=== PATIENT | female | born 1970 | race American Indian/Alaskan Native ===

== ENCOUNTER 2016-11-11 16:55 | Emergency (ER) | payer OTHER ==
[2016-11-11 20:42] VITALS: BP 186/79
[2016-11-11 20:45] LABS: Basophils % (Auto) 0.7 % (0.0-1.8); Eosinophils % (Auto) 2.2 % (0.0-4.3); Hemoglobin 9.4 gm/dl (10.1-14.3); Mean Corpuscular HGB Conc 31 % (30-34); Mean Corpuscular Hemoglobin 21 pg (28-32); Mean Corpuscular Volume 68 fl (79-97); Platelet Count 338 K/mm3 (140-440); Red Blood Count 4.43 M/mm3 (3.65-5.03); Red Cell Distribution Width 16.9 % (13.2-15.2); White Blood Count 5.4 K/mm3 (4.5-11.0)
[2016-11-11 20:57] LABS: Anion Gap 17 mmol/L; BUN/Creatinine Ratio 11.11; Blood Urea Nitrogen 10 mg/dL (7-17); Calcium 8.6 mg/dL (8.4-10.2); Carbon Dioxide 22 mmol/L (22-30); Chloride 100.3 mmol/L (98-107); Glucose 104 mg/dL (65-100); Potassium 3.2 mmol/L (3.6-5.0); Sodium 136 mmol/L (137-145)
[2016-11-11] MEDS ORDERED: K-DUR PO ONE (21:28)
[2016-11-11] MEDS ORDERED: MOTRIN PO ONE (21:29)
--- NOTE | 2016-11-11 22:24 | Emergency Department Report ---
Entered by TYREL MONROE, acting as scribe for LEAH ARAGON PA. ED Extremity Problem HPI - General Chief complaint: Extremity Problem,Nontraumatic Stated complaint: RT HAND /RT ARM SWOLLEN Time Seen by Provider: 11/11/16 20:20 Source: patient Mode of arrival: Ambulatory Limitations: No Limitations - History of Present Illness Initial comments: 46 y/o female with PMHx of HTN, presents to the ED c/o right upper extremity swelling and pain beginning this morning. She denies trauma, injury, or known insect bite to the area. Associated symptoms of erythema in the affected area and chills, but she denies headache, nausea, vomiting, fever, chest pain, SOB, weakness, and numbness. She had a similar episode 1 month ago, at which time her salivary gland became swollen, for which she was prescribed percocet and clindamycin. She is unsure which medication she had an adverse reaction to at that time. Noted the patient is compliant with her prescribed HCTZ for her HTN as prescribed by her PCP (Dr. Dick). MD Complaint: extremity swelling (right upper extremity) -: days(s) (1 day) Location: right, upper extremity History of Same: Yes (patient notes that 1 month ago her salivary gland was swollen) -: No fever, No associated dyspnea, No associated chest pain Radiation: none Severity scale (0 -10): 8 Consistency: constant Improves with: nothing Worsens with: exertion, palpation Associated Symptoms: other (chills, but denies nausea, vomiting, headache). denies: chest pain, shortness of breath, fever - Related Data Previous Rx's Medication Instructions Recorded Last Taken Type Cephalexin [Keflex] 500 mg PO QID #40 capsule 11/11/16 Unknown Rx Allergies Allergy/AdvReac Type Severity Reaction Status Date / Time acetaminophen [From Percocet] Allergy Rash Verified 11/11/16 20:21 clindamycin Allergy Rash Verified 11/11/16 20:21 lisinopril Allergy Unknown Unverified 03/31/14 07:24 oxycodone HCl [From Percocet] Allergy Rash Verified 11/11/16 20:21 raspberry Allergy Rash Verified 11/11/16 17:52 ED Past Medical Hx - Past Medical History Previous Medical History?: Yes Hx Hypertension: Yes Hx COPD: Yes (2003) Additional medical history: thyroid problem - Surgical History Past Surgical History?: Yes Additional Surgical History: lumbar discetomy - Medications Home Medications: Home Medications Medication Instructions Recorded Confirmed Last Taken Type Cephalexin [Keflex] 500 mg PO QID #40 capsule 11/11/16 Unknown Rx ED Physical Exam - General Limitations: No Limitations - Other Other exam information: GENERAL: Patient is alert and oriented x 3. No apparent distress, normal gait, atraumatic. HEAD: Head is normocephalic and atraumatic. EYES: Extraocular movements are intact. Pupils are equal, round, and reactive to light and accommodation. EARS: Symmetrical, atraumatic, non tender, ear canal clear with moderate cerumen , tympanic membrane non inflamed. Gross auditory nml bilaterally. NOSE: Nose symmetrical, nontender. Nares appeared normal. MOUTH:Mouth is well hydrated and without lesions. Mucous membranes are moist. Uvula midline. Tongue not elevated. Posterior pharynx clear, no exudate or lesions. Tonsils are not erythematous or swollen. Patent airway. NECK: Supple. Non edematous, no carotid bruits. No lymphadenopathy or thyromegaly. LUNGS: Symmetrical with respiration. No wheezing, rales or crackles, CTAB. HEART: Regular rate and rhythm with normal S1/S2 present. No murmurs, rubs, or gallops. ABDOMEN: Soft, nondistended. Nontender to palpation on all quadrants. No organomegaly was noted. Positive bowel sounds. No CVA tenderness. EXTREMITIES/MUSCULOSKELETAL: No cyanosis, clubbing, rash, or lesions. Full ROM bilaterally. UE/LE Pulses 2+ bilaterally. LE and UE 5+ strength bilaterally. Noted the right hand is erythematous, tender to palpation, and edematous, with streaking occurring up the right forearm on both the ulnar and volar faces of the right forearm. SKIN: Warm and dry. No lesions or ulceration present. Noted the right hand is erythematous and edematous, with streaking up the volar and ulnar faces of the right forearm. NEUROLOGIC: No focal deficit. ED Course Vital Signs 11/11/16 11/11/16 17:46 20:42 Temperature 98.1 F Pulse Rate 109 H Respiratory 18 Rate Blood Pressure 161/101 Blood Pressure 161/101 186/79 [Left] O2 Sat by Pulse 100 Oximetry ED Medical Decision Making - Lab Data Result diagrams: 11/11/16 20:27 11/11/16 20:27 - Medical Decision Making Patient was evaluated by the provider in fast track. 46 y/o female presents complaining of right upper extremity swelling and tenderness beginning today. Patient states she is compliant with her HTN medication (HCTZ). The patient's labs show Patient is in no acute distress at this time. She will be discharged home with Keflex 500mg QID for 10 days and is encouraged to follow up with her PCP (Dr. Dick). She is encouraged to return to the emergency room for any worsening symptoms, fever, or blackening of the extremities. ED Disposition Clinical Impression: Cellulitis of forearm, right, Cellulitis of hand, right, Hypokalemia Disposition: DISCHARGED TO HOME OR SELFCARE Is pt being admited?: No Does the pt Need Aspirin: No Condition: Stable Instructions: Cellulitis (ED) Additional Instructions: Please take the Keflex which is an antibiotic for your cellulitis. If very important for you to follow-up with her primary care provider this week. If he gets worse or no improvement follow-up with emergency room. Prescriptions: Cephalexin [Keflex] 500 mg PO QID #40 capsule Referrals: PRIMARY CARE,MD [Primary Care Provider] - 3-5 Days Forms: Work/School Release Form(ED) This documentation as recorded by the [facility] GRACE,accurately reflects the service I personally performed and the decisions made by me,LEAH ARAGON PA.
== END 2016-11-11 22:09 | disposition home or self-care (01) ==
LOC: ED 16:55
DX: L03.113 Cellulitis of right upper limb (principal); E87.6 Hypokalemia; I10 Essential (primary) hypertension; J44.9 Chronic obstructive pulmonary disease, unspecified; Z88.8 Allergy status to other drugs, medicaments and biological substances; Z88.1 Allergy status to other antibiotic agents; Z91.018 Allergy to other foods
CPT/HCPCS: 36415; 80048; 85025; 99283

== ENCOUNTER 2017-12-29 06:04 | Day surgery (SDC) | payer OTHER ==
[2017-12-24 12:02] LABS: Basophils % (Auto) 1.3 % (0.0-1.8); Eosinophils # (Auto) 0.2 K/mm3 (0.0-0.4); Eosinophils % (Auto) 5.3 % (0.0-4.3); Hematocrit 29.1 % (30.3-42.9); Hemoglobin 9.3 gm/dl (10.1-14.3); Lymphocytes # (Auto) 1.5 K/mm3 (1.2-5.4); Lymphocytes % (Auto) 40.8 % (13.4-35.0); Mean Corpuscular HGB Conc 32 % (30-34); Mean Corpuscular Volume 76 fl (79-97); Monocytes # (Auto) 0.4 K/mm3 (0.0-0.8); Monocytes % (Auto) 10.6 % (0.0-7.3); Platelet Count 370 K/mm3 (140-440); Red Blood Count 3.81 M/mm3 (3.65-5.03); Red Cell Distribution Width 17.2 % (13.2-15.2)
[2017-12-24 12:04] LABS: Mean Corpuscular Hemoglobin 25 pg (28-32)
[2017-12-24 12:13] LABS: INR 2.08 (0.87-1.13)
[2017-12-24 12:14] LABS: Partial Thromboplastin Time 45.6 Sec. (24.2-36.6)
[2017-12-24 12:36] LABS: BUN/Creatinine Ratio 13; Blood Urea Nitrogen 10 mg/dL (7-17); Calcium 8.9 mg/dL (8.4-10.2); Hemolysis Index 0
--- NOTE | 2017-12-28 19:02 | History and Physical Report ---
History of Present Illness Date of examination: 12/24/17 History of present illness: This is a 47 year-old female who desires fertility. She has an endometrial mass and excessive and frequent menstruation causing anemia. She presents now for cervical dilation, excision of endometrial mass and uterine curettage. Vital Signs: Patient Profile: 47 Years Old Female LMP: 12/14/2017 Height: 66 inches (167.64 cm) Weight: 330 pounds BMI: 53.26 BSA: 2.48 BP sittin / 78 (left arm) Pt. in pain? no Vitals Entered By: Tristan Leblanc (December 24, 2017 9:47 AM) Menstrual History: LMP (date): 12/14/2017 Date of Last Pap Smear: 07/02/2017 Past History : 0 [employer] History Operations: [employer] Surgery:h'scopy D&C Back surgery 11/2008 Abnormal PAP: positive Infection History HIV Risk Eval: no Hx of STD: HSV Active Medications (reviewed today): OXYCODONE-ACETAMINOPHEN 5-325 MG ORAL TABLET (OXYCODONE-ACETAMINOPHEN) 1-2po q6h VITAMIN D3 04159 UNIT ORAL CAPSULE (CHOLECALCIFEROL) SINGULAIR 10 MG ORAL TABLET (MONTELUKAST SODIUM) 1 po qd ZYRTEC ALLERGY TABLET (CETIRIZINE HCL TABS) ALBUTEROL SULFATE (2.5 MG/3ML) 0.083% INHALATION NEBULIZATION SOLUTION ( ALBUTEROL SULFATE) VALACYCLOVIR HCL 500 MG ORAL TABLET (VALACYCLOVIR HCL) 1 po bid x3 days as needed SYNTHROID TABLET (LEVOTHYROXINE SODIUM TABS) LOVENOX 300 MG/3ML INJECTION SOLUTION (ENOXAPARIN SODIUM) Inject 0.4ml (40mg) subcutaneously bid TRIAMTERENE-HCTZ TABLET (TRIAMTERENE-HCTZ TABS) Current Allergies (reviewed today): LISINOPRIL (LISINOPRIL TABS) (Critical) Past Medical History: Protein S deficiency Asthma Hypertension Hypothyroidism Anemia Vitamin D deficiency Stroke/CVA Past Surgical History: Reviewed history from 01/31/2009 and no changes required: [employer] Surgery:h'scopy D&C Back surgery 11/2008 Family History Summary: Reviewed history Last on 03/24/2014 and no changes required:12/28/2017 Uncle - Has Family History of Lung Cancer - maternal - Entered On: 07/19/2017 Father (biol.) - Has Family History of Lung Cancer - Entered On: 07/19/2017 Uncle - Has Family History of Brain Cancer - Entered On: 07/19/2017 MGM - Has Family History Breast Cancer - Entered On: 07/19/2017 Other family member - Has No Family History of Biliary Tract Cancer - Entered On : 07/19/2017 Other family member - Has No Family History of Colon Cancer - Entered On: 2016 Other family member - Has No Family History of DVT/PE on OCP - Entered On: 2016 Other family member - Has No Family History of Kidney/Urinary Tract Cancer - Entered On: 07/19/2017 Other family member - Has No Family History of Ovarvian Cancer - Entered On: 07/19/2017 Other family member - Has No Family History of Pancreatic Cancer - Entered On: 07/19/2017 Other family member - Has No Family History of Stomach Cancer - Entered On: 07/19 Other family member - Has No Family History of Small Bowel Cancer - Entered On: 07/19/2017 Other family member - Has No Family History of Uterine Cancer - Entered On: 07/19 General Comments - FH: Family History Breast Cancer:MGM No Family History of Colon Cancer No Family History of Ovarian Cancer Social History: Reviewed history from 06/19/2017 and no changes required: Patient is Smoking History: Patient has never smoked. Risk Factors: PAP Smear History: Date of Last PAP Smear: 07/02/2017 Previous Tobacco Use: Signed On - 06/19/2017 Smoked Tobacco Use: Never smoker Passive smoke exposure: no Drug use: no HIV high-risk behavior: no Caffeine use: 2 drinks per day Previous Alcohol Use: Signed On - 06/19/2017 Alcohol use: yes Drinks per day: social Exercise: no Seatbelt use: 100 % Mammogram History: Date of Last Mammogram: 03/31/2014 PAP Smear History: Date of Last PAP Smear: 07/02/2017 Review of Systems General Denies fever, chills, sweats, anorexia, fatigue, weakness, malaise, weight loss and sleep disorder. Complains of menorrhagia and abnormal vaginal bleeding. Denies vaginal discharge, incontinence, dysuria, hematuria, urinary frequency, amenorrhea, pelvic pain, genital sores, decreased libido, painful periods, painful sex, urinary urgency, hot flashes, vaginal dryness, vaginal itching and vaginal odor. CV Denies chest pains, palpitations, syncope, dyspnea on exertion, orthopnea, PND and peripheral edema. Resp Denies cough, dyspnea at rest, excessive sputum, hemoptysis, wheezing and pleurisy. GI Denies nausea, vomiting, diarrhea, constipation, change in bowel habits, abdominal pain, melena, hematochezia, jaundice, gas/bloating, indigestion/ heartburn, dysphagia and odynophagia. Endo Denies cold intolerance, heat intolerance, polydipsia, polyphagia, polyuria and unusual weight change. Breast Denies left breast lump, right breast lump, nipple discharge, bloody discharge from nipple, breast pain, abnormal mammogram and breast enlargement. MS Denies back pain, joint pain, joint swelling, muscle cramps, muscle weakness, stiffness, arthritis, sciatica, restless legs, leg pain at night and leg pain with exertion. Derm Denies rash, itching, dryness and suspicious lesions. Neuro Denies paralysis, paresthesias, headache, seizures, tremors, vertigo, transient blindness, frequent falls, frequent headaches and difficulty walking. Psych Denies depression, anxiety, irritability and mood swings. Eyes Denies blurring, diplopia, irritation, discharge, vision loss, eye pain and photophobia. ENT Denies earache, ear discharge, tinnitus, decreased hearing, nasal congestion, nosebleeds, sore throat and hoarseness. Allergy Denies urticaria, allergic rash, hay fever and recurrent infections. Heme Denies abnormal bruising, bleeding and enlarged lymph nodes. Physical Exam Appearance: well developed, well nourished, no acute distress Other Exams Lungs: no rales, rhonchi, or wheezes Heart: S1, S2, no murmur, rub, or gallop Abdomen: soft, non-tender, no masses, Appearance: obese Genitourinary Exam Vulva: normal, no lesions or discharge Urethral meatus: normal size and location, no lesions or discharge Urethra: no discharge Bladder: no cystocele Vagina: normal appearance, no discharge, lesions. No evidence of cystocele or rectocele. Cervix: normal appearance, no lesions, no discharge Uterus: unable to palpate Adnexa: unable to palpate due to obesity Impression & Recommendations: Problem # 1: Excessive and frequent menstruation with irregular cycle (ICD- 626.6) (OXY02-K96.1) Consent reviewed and signed . Possible laparoscopy or laparotomy explained to patient. The risks and alternatives for this surgery were reviewed with the patient. She was informed of possible bleeding, infection, injury to bowel, bladder, ureters or other adjacent organs. The patient was instructed/informed the following: The normal length of hospital stay for this procedure. Nothing to eat or drink after midnight the evening prior to surgery. Clear liquids the afternoon prior to the procedure. Pre-op instruction sheets given. Wound care instructions given. Infection precautions reviewed, patient to call for any signs or symptoms of infection. The usual discomforts associated with this procedure were detailed. Proper use of pain medicines was reviewed. Patient was given ample opportunity to have all her questions answered before signing informed consent. Patient voiced understanding and agrees with plan of care Counseling and coordination of care was >50% of the face to face time. The total face to face time for this visit was ~40 minutes. Problem # 2: Fibroids of uterus, Submucosal (ICD-218.0) (OUG45-A98.0) She was informed she may require a hysterectomy if bleeding is unable to be controlled during the procedure. She declined having the intramural and subserosal fibroids removed at this time. Problem # 3: Hereditary protein S deficiency (ICD-289.81) (LJK17-U86.59) She states she will d/c Coumadin today and start Lovenox qd tonight. Medications Added to Medication List This Visit: 1) Oxycodone-acetaminophen 5-325 Mg Oral Tablet (Oxycodone-acetaminophen) .... 1-2po q6h 2) Vitamin D3 99043 Unit Oral Capsule (Cholecalciferol) 3) Singulair 10 Mg Oral Tablet (Montelukast sodium) .... 1 po qd 4) Zyrtec Allergy Tablet (Cetirizine hcl tabs) 5) Lovenox 300 Mg/3ml Injection Solution (Enoxaparin sodium) .... Inject 0.4ml (40mg) subcutaneously bid 6) Triamterene-hctz Tablet (Triamterene-hctz tabs) Prescriptions: OXYCODONE-ACETAMINOPHEN 5-325 MG ORAL TABLET (OXYCODONE-ACETAMINOPHEN) 1-2po q6h #15 x 0 Entered and Authorized by: Marbella Mcelroy MD Method used: Print then Give to Patient RxID: [id number] Medications and Allergies Allergies Allergy/AdvReac Type Severity Reaction Status Date / Time acetaminophen [From Percocet] Allergy Rash Verified 11/11/16 20:21 clindamycin Allergy Rash Verified 11/11/16 20:21 lisinopril Allergy Unknown Verified 11/11/16 21:43 oxycodone HCl [From Percocet] Allergy Rash Verified 11/11/16 20:21 raspberry Allergy Rash Verified 11/11/16 17:52 Home Medications Medication Instructions Recorded Confirmed Last Taken Type ALBUTEROL Inhaler [Proair] 2 puff IH QID PRN 12/25/17 12/25/17 Unknown History Cetirizine HCl [Zyrtec] 10 mg PO DAILY 12/25/17 12/25/17 Unknown History Enoxaparin [Lovenox] 100 mg SQ Q12HR 12/25/17 12/25/17 Unknown History Levothyroxine Sodium 175 mcg PO DAILY 12/25/17 12/25/17 Unknown History Triamter/Hctz 37.5-25 mg 1 tab PO DAILY 12/25/17 12/25/17 Unknown History [Maxzide-25] Warfarin [Coumadin] 5 mg PO QDAY 12/25/17 12/25/17 12/23/17 20:00 History Active Meds: Active Medications Cefazolin Sodium (Ancef/Sterile Water 2 Gm/20 Ml) 2 gm in 20 mls @ 80 mls/hr IV PREOP NR; Protocol Stop: 12/29/17 23:00 Exam Vital Signs Temp Pulse Resp BP 99.1 F 74 18 128/88 12/24/17 11:00 12/24/17 11:00 12/24/17 11:00 12/24/17 11:00 Results - Labs 12/24/17 11:15 12/24/17 11:15 Assessment and Plan - Patient Problems (1) Excessive and frequent menstruation with irregular cycle Status: Acute (2) Endometrial mass Status: Acute (3) Uterine fibroid Status: Chronic Qualifiers: Uterine leiomyoma location: intramural, submucous, and subserous Qualified Code(s): D25.1 - Intramural leiomyoma of uterus; D25.0 - Submucous leiomyoma of uterus; D25.2 - Subserosal leiomyoma of uterus (4) Anemia Status: Chronic Qualifiers: Iron deficiency anemia type: chronic blood loss (5) Protein S deficiency Status: Chronic (6) Hypothyroid Status: Acute (7) Hypertension Status: Chronic (8) Asthma Status: Chronic (9) Vitamin D deficiency Status: Chronic (10) BMI 45.0-49.9, adult Status: Chronic
[~2017-12-29 06:04] MED LIST: ANCEF/STERILE WATER 2 GM/20 ML 2 GM/20 ML SYRINGE IV NR
[2017-12-29] MEDS ORDERED: NACL BACTERIOSTATIC INFILTRATI ONE (06:45)
[2017-12-29] MEDS ORDERED: VERSED IV NR (07:00)
[2017-12-29] MEDS ORDERED: NACL 0.9% 1000 ML 1,000 ML IV SCH (07:00)
[2017-12-29] MEDS ORDERED: PEPCID IV NR (07:00)
[2017-12-29] MEDS ORDERED: DILAUDID IV PRN (07:12)
[2017-12-29] MEDS ORDERED: ZOFRAN IV PRN (07:12)
[2017-12-29] MEDS ORDERED: TORADOL IV PRN (07:12)
[2017-12-29] MEDS ORDERED: SILVER NITRATE TP ONE (07:22)
[2017-12-29 07:27] LABS: INR 1.1 (0.87-1.13)
[2017-12-29] MEDS ORDERED: DIPRIVAN 10 MG/ML IV ONE (07:27)
[2017-12-29] MEDS ORDERED: XYLOCAINE MPF 2% ONE (07:27)
[2017-12-29 07:28] LABS: Partial Thromboplastin Time 33.2 Sec. (24.2-36.6)
[2017-12-29] MEDS ORDERED: SUBLIMAZE ONE (07:28)
[2017-12-29] MEDS ORDERED: NACL 0.9% IR ONE (07:55)
--- NOTE | 2017-12-29 08:58 | Anesthesia Consultation ---
Anesthesia Consult and Med Hx - Airway Anesthetic Teeth Evaluation: Good ROM Head & Neck: Adequate Mental/Hyoid Distance: Adequate Mallampati Class: Class II Intubation Access Assessment: Probably Good - Pulmonary Exam CTA: Yes - Cardiac Exam Cardiac Exam: RRR - Pre-Operative Health Status ASA Pre-Surgery Classification: ASA3 (no problems with GA i past) Proposed Anesthetic Plan: General - Pulmonary Hx Asthma: Yes ("Been a minute" since last treated) COPD: Yes (2004) - Cardiovascular System Hx Hypertension: Yes (since 2003) Hx Heart Murmur: Yes - Central Nervous System Hx Psychiatric Problems: No - Hematic Hx Anemia: Yes (protein s deficiency) - Other Systems Hx Alcohol Use: Yes (occas) Hx Cancer: No
--- NOTE | 2017-12-29 08:58 | Post Anesthesia Evaluation ---
- Post Anesthesia Evaluation Patient Participated: Yes Airway Patent: Yes Stable Respiratory Function: Yes Nausea/Vomiting: No Temp > 96.8F: Yes Pain Manageable: Yes Adequeate Hydration: Yes Anesthesia Complications: No Block Receding Appropriately: Not Applicable Patient on Ventilator: No
--- NOTE | 2017-12-29 09:01 | Short Stay Summary ---
Short Stay Documentation Date of service: 12/29/17 Narrative H&P: see H&P - Allergies and Medications Current Medications: Allergies acetaminophen [From Percocet] Allergy (Verified 11/11/16 20:21) Rash clindamycin Allergy (Verified 11/11/16 20:21) Rash lisinopril Allergy (Verified 11/11/16 21:43) Unknown oxycodone HCl [From Percocet] Allergy (Verified 11/11/16 20:21) Rash raspberry Allergy (Verified 11/11/16 17:52) Rash Home Medications Medication Instructions Recorded Confirmed Last Taken Type ALBUTEROL Inhaler [Proair] 2 puff IH QID PRN 12/25/17 12/25/17 Unknown History Cetirizine HCl [Zyrtec] 10 mg PO DAILY 12/25/17 12/25/17 Unknown History Enoxaparin [Lovenox] 100 mg SQ Q12HR 12/25/17 12/25/17 Unknown History Levothyroxine Sodium 175 mcg PO DAILY 12/25/17 12/25/17 Unknown History Triamter/Hctz 37.5-25 mg 1 tab PO DAILY 12/25/17 12/25/17 Unknown History [Maxzide-25] Warfarin [Coumadin] 5 mg PO QDAY 12/25/17 12/25/17 12/23/17 20:00 History Active Medications Hydromorphone HCl (Dilaudid) 0.25 mg IV Q10MIN PRN PRN Reason: Pain, Moderate (4-6) Stop: 12/29/17 15:00 Cefazolin Sodium (Ancef/Sterile Water 2 Gm/20 Ml) 2 gm in 20 mls @ 80 mls/hr IV PREOP NR; Protocol Stop: 12/29/17 23:00 Sodium Chloride (Nacl 0.9% 1000 Ml) 1,000 mls @ 100 mls/hr IV DIRECT GABRIELA Last Admin: 12/29/17 07:13 Dose: 100 mls/hr Ketorolac Tromethamine (Toradol) 30 mg IV ONCE PRN PRN Reason: Pain, Moderate (4-6) Stop: 12/29/17 13:00 Midazolam HCl (Versed) 2 mg IV PREOP NR Stop: 12/29/17 23:59 Last Admin: 12/29/17 07:16 Dose: 2 mg Ondansetron HCl (Zofran) 4 mg IV ONCE PRN PRN Reason: Nausea And Vomiting Stop: 12/29/17 15:00 - Brief post op/procedure progress note Date of procedure: 12/29/17 Pre-op diagnosis: Excessive and frequent irregular menstruation, endometrial mass, fibroids Post-op diagnosis: same Procedure: Hysterscopy, D&C. Myosure resection of endometrial lesion Anesthesia: GETA Surgeon: OLIVIA FAN Estimated blood loss: minimal Specimen disposition: to lab Condition: stable - Hospital course Hospital course: unremarkable - Disposition Condition at discharge: Good Disposition: DC- TO HOME OR SELFCARE - Discharge Diagnoses (1) Excessive and frequent menstruation with irregular cycle Status: Acute (2) Endometrial mass Status: Acute (3) Uterine fibroid Status: Chronic Qualifiers: Uterine leiomyoma location: intramural, submucous, and subserous Qualified Code(s): D25.1 - Intramural leiomyoma of uterus; D25.0 - Submucous leiomyoma of uterus; D25.2 - Subserosal leiomyoma of uterus (4) Anemia Status: Chronic Qualifiers: Iron deficiency anemia type: chronic blood loss (5) Protein S deficiency Status: Chronic (6) Hypothyroid Status: Acute (7) Hypertension Status: Chronic (8) Asthma Status: Chronic (9) Vitamin D deficiency Status: Chronic (10) BMI 45.0-49.9, adult Status: Chronic Short Stay Discharge Plan Activity: other (nosex) Weight Bearing Status: Full Weight Bearing Diet: low fat, low cholesterol, low salt Follow up with: BRITT FARIA JR, MD [Primary Care Provider] - 7 Days OLIVIA FAN MD [Staff Physician] - (As scheduled)
--- NOTE | 2017-12-29 09:56 | Operative Report ---
Operative Report Operative Report: Date: 12/29/2017 Preoperative diagnosis: 1. Excessive and frequent irregular menstruation 2. Uterine fibroids 3. Endometrial mass Postoperative diagnosis: 1. Excessive and frequent irregular menstruation 2. Uterine fibroids 3. Endometrial mass Procedure: 1. Cervical dilation 2. Uterine curettage 3. Resection of anterior endometrial mass with sampling of endometrial tissue using Myosure device Surgeon: Marbella Mcelroy MD [employer] Laborer: [] Anesthesiologist: Muriel Balderas M.D. Anesthesia: Endotracheal anesthesia EBL: Minimal Findings: Uterus sounded to 10 cm. Small mass noted on the anterior surface of the uterus possible fibroid. Grossly normal tubal ostia. Distention medium: Normal saline Fluid deficit: 200 mL Procedure: After risks, benefits, complications, consequences and alternatives for this procedure were explained, and patient voiced her understanding and her desire to proceed, she is taken to the OR and placed in the supine position. General anesthesia was induced. She was placed in the dorsolithotomy position. Exam under anesthesia was unremarkable. She was then prepped and draped in usual sterile fashion. Timeout was performed. A Horton catheter was introduced into the bladder a operative speculum was introduced was introduced into the vagina. The anterior lip of the cervix was grasped with single-tooth tenaculum and the uterus was sounded to 10 cm. The cervix was progressively dilated to allow the operative hysteroscope. Anterior mass was noted otherwise the cavity appeared to be grossly normal. Uterine curettage was then performed. Using the Myosure device hysteroscopic resection was performed. Further sampling of the endometrium using the Myosure device was performed. The device was removed. The hysteroscope was reintroduced. No evidence of perforation was noted. Hemostasis noted. The procedure was ended. The speculum and the tenaculum were removed. Hemostasis was noted. The Horton catheter was removed. No bleeding from the tenaculum site was noted. Clear yellow urine was draining into the Horton catheter at the end of the procedure. Patient tolerated procedure well and taken to recovery room in stable condition
[2017-12-29 11:32] VITALS: BP 153/86
== END 2017-12-29 10:35 | disposition home or self-care (01) ==
LOC: OR 06:04
PROVIDERS: ATTEND Obstetrics & Gynecology
DX: D25.9 Leiomyoma of uterus, unspecified (principal); I10 Essential (primary) hypertension; E03.9 Hypothyroidism, unspecified; J44.9 Chronic obstructive pulmonary disease, unspecified; Z79.01 Long term (current) use of anticoagulants; Z86.73 Personal history of transient ischemic attack (TIA), and cerebral infarction without residual deficits; Z88.8 Allergy status to other drugs, medicaments and biological substances; Z88.1 Allergy status to other antibiotic agents; Z88.6 Allergy status to analgesic agent
CPT/HCPCS: 36415; 58558; 80048; 81025; 85025; 85610; 85730; 86850; 86900; 86901; 88305; A4217; C1782; J0690; J1170; J2250; J2405; J2704; J3010; J7030

== ENCOUNTER 2018-09-12 09:13 | Emergency (ER) | payer OTHER ==
[2018-09-12 09:21] VITALS: BP 126/80
--- NOTE | 2018-09-12 09:54 | Emergency Department Report ---
Vomiting/Diarrhea - HPI Chief Complaint: Abdominal Pain Stated Complaint: UPSET STOMACH Duration: 2 Days Severity: moderate Nausea/Vomiting Severity: Mild Diarrhea Severity: Moderate Pain Location: LLQ Pain Severity: Moderate Symptoms: Yes Watery Diarrhea, Yes Able to Tolerate Fluids, No Bloody diarrhea, No Fever, No Recent Unusual Foods, No Recent Untreated Water, No Recent use of Antibiotics, No Family w/ Similar Symptoms, No Contacts w/ Similar Symptoms, No Rash, No Hematuria, No Recent URI Symptoms Other History: This is a 48-year-old -[place] female who presents with nausea, vomiting, diarrhea, and left lower quadrant abdominal pain for 2 days. Patient reports pain started out in epigastric area and radiated to the lower abdomen. She is currently taken ibuprofen. She reports one episode of vomiting and diarrhea every 2 hours that is liquid. He reports pain is worse with movement and feels like something twisting inside of stomach. She denies chest pain, shortness of breath, fever, or radiating pain. ED Review of Systems ROS: Stated complaint: UPSET STOMACH Other details as noted in HPI Constitutional: denies: chills, fever Respiratory: denies: cough, shortness of breath, wheezing Cardiovascular: denies: chest pain, palpitations Gastrointestinal: abdominal pain, nausea, vomiting, diarrhea. denies: constipation, hematemesis, melena, hematochezia Genitourinary: denies: urgency, dysuria, discharge Neurological: denies: headache, weakness, paresthesias Psychiatric: denies: anxiety, depression ED Past Medical Hx - Past Medical History Hx Hypertension: Yes (since 2003) Hx Arthritis: Yes ("everywhere") Hx Asthma: Yes ("Been a minute" since last treated) Hx COPD: Yes (2003) Additional medical history: thyroid problem - Surgical History Past Surgical History?: Yes Additional Surgical History: lumbar discetomy - Social History Smoking Status: Never Smoker Substance Use Type: None - Medications Home Medications: Home Medications Medication Instructions Recorded Confirmed Last Taken Type ALBUTEROL Inhaler (OR & NICU) 2 puff IH QID PRN 12/25/17 12/29/17 2 Months Ago History [Proair] ~10/29/17 Cetirizine HCl [Zyrtec] 10 mg PO DAILY 12/25/17 12/25/17 12/28/17 History Enoxaparin [Lovenox] 100 mg SQ Q12HR 12/25/17 12/25/17 12/28/17 History Levothyroxine Sodium 175 mcg PO DAILY 12/25/17 12/25/17 12/28/17 History Triamter/Hctz 37.5-25 mg 1 tab PO DAILY 12/25/17 12/25/17 12/28/17 History [Maxzide-25] Warfarin [Coumadin] 5 mg PO QDAY 12/25/17 12/25/17 12/23/17 20:00 History Ondansetron [Zofran Odt] 4 mg PO Q8HR PRN #15 tab.rapdis 09/12/18 Unknown Rx Vomiting Diarrhea Exam - Exam General: Vital signs noted. No distress. Alert and acting appropriately. HEENT: Yes Moist Mucous Membranes, No Pharyngeal Erythema, No Pharyngeal Exudates, No Rhinorrhea, No Conjuctival Injection, No Frontal Tenderness, No Maxillary Tenderness Neck: No Adenopathy, No Rigidity Lungs: Yes Clear Lung Sounds, Yes Good Air Exchange, No Wheezes, No Stridor, No Cough, No Nasal Flaring, No Retractions, No Use of Accessory Muscles Heart exam: Regular: Yes, Murmur: No, Tachycardia: No Abdomen: Tenderness: Yes (LUQ), Peritoneal Signs: No, Distention: No, Hyperactive Bowel sounds: No Skin exam: Rash: No, Edema: No, Normal turgor: Yes Neurologic: Alert and oriented, no deficits. Musculoskeletal: Unremarkable. ED Course Vital Signs 09/12/18 09:16 Temperature 99.8 F H Pulse Rate 84 Respiratory 18 Rate Blood Pressure 126/80 O2 Sat by Pulse 100 Oximetry ED Medical Decision Making - Lab Data Result diagrams: 09/12/18 09:56 09/12/18 09:56 Lab Results 09/12/18 09/12/18 09/12/18 Range/Units 09:54 09:56 09:56 WBC 5.8 (4.5-11.0) K/mm3 RBC 4.19 (3.65-5.03) M/mm3 Hgb 11.3 (10.1-14.3) gm/dl Hct 35.0 (30.3-42.9) % MCV 83 (79-97) fl MCH 27 L (28-32) pg MCHC 32 (30-34) % RDW 22.0 H (13.2-15.2) % Plt Count 281 (140-440) K/mm3 Add Manual Diff Complete Total Counted 100 Seg Neuts % (Manual) 79.0 H (40.0-70.0) % Band Neutrophils % 7.0 % Lymphocytes % (Manual) 8.0 L (13.4-35.0) % Reactive Lymphs % (Man) 0 % Monocytes % (Manual) 6.0 (0.0-7.3) % Eosinophils % (Manual) 0 (0.0-4.3) % Basophils % (Manual) 0 (0.0-1.8) % Metamyelocytes % 0 % Myelocytes % 0 % Promyelocytes % 0 % Blast Cells % 0 % Nucleated RBC % Not Reportable Seg Neutrophils # Man 4.6 (1.8-7.7) K/mm3 Band Neutrophils # 0.4 K/mm3 Lymphocytes # (Manual) 0.5 L (1.2-5.4) K/mm3 Abs React Lymphs (Man) 0.0 K/mm3 Monocytes # (Manual) 0.3 (0.0-0.8) K/mm3 Eosinophils # (Manual) 0.0 (0.0-0.4) K/mm3 Basophils # (Manual) 0.0 (0.0-0.1) K/mm3 Metamyelocytes # 0.0 K/mm3 Myelocytes # 0.0 K/mm3 Promyelocytes # 0.0 K/mm3 Blast Cells # 0.0 K/mm3 WBC Morphology Not Reportable Hypersegmented Neuts Not Reportable Hyposegmented Neuts Not Reportable Hypogranular Neuts Not Reportable Smudge Cells Not Reportable Toxic Granulation Not Reportable Toxic Vacuolation Not Reportable Dohle Bodies Not Reportable Pelger-Huet Anomaly Not Reportable Evelin Rods Not Reportable Platelet Estimate Consistent w auto Clumped Platelets Not Reportable Plt Clumps, EDTA Not Reportable Large Platelets Not Reportable Giant Platelets Not Reportable Platelet Satelliting Not Reportable Plt Morphology Comment Not Reportable RBC Morphology Not Reportable Dimorphic RBCs Not Reportable Polychromasia Not Reportable Hypochromasia Few Poikilocytosis Not Reportable Anisocytosis Not Reportable Microcytosis Not Reportable Macrocytosis Not Reportable Spherocytes Not Reportable Pappenheimer Bodies Not Reportable Sickle Cells Not Reportable Target Cells Not Reportable Tear Drop Cells Not Reportable Ovalocytes Not Reportable Stomatocytes Few Helmet Cells Not Reportable Virgen-Escanaba Bodies Not Reportable [place] Rings Not Reportable Bart Cells Not Reportable Bite Cells Not Reportable Crenated Cell Not Reportable Elliptocytes Not Reportable Acanthocytes (Spur) Not Reportable Rouleaux Not Reportable Hemoglobin C Crystals Not Reportable Schistocytes Not Reportable Malaria parasites Not Reportable Clarence Bodies Not Reportable Hem Pathologist Commnt No Sodium 133 L (137-145) mmol/L Potassium 3.4 L (3.6-5.0) mmol/L Chloride 97.1 L (98-107) mmol/L Carbon Dioxide 22 (22-30) mmol/L Anion Gap 17 mmol/L BUN 10 (7-17) mg/dL Creatinine 1.2 (0.7-1.2) mg/dL Estimated GFR 59 ml/min BUN/Creatinine Ratio 8 % Glucose 103 H (65-100) mg/dL Calcium 8.8 (8.4-10.2) mg/dL Total Bilirubin 0.60 (0.1-1.2) mg/dL AST 11 (5-40) units/L ALT 9 (7-56) units/L Alkaline Phosphatase 114 (35-129) units/L Total Protein 8.8 H (6.3-8.2) g/dL Albumin 3.6 L (3.9-5) g/dL Albumin/Globulin Ratio 0.7 % Lipase 41 (13-60) units/L HCG, Qual Negative (Negative) - Radiology Data Radiology results: report reviewed CT of abdomen and pelvic Impression: 1. Hepatic steatosis and hepatomegaly. 2. Multiple uterine masses most likely represents a uterine fibroids. Recommend further evaluation with pelvic ultrasound. 3. Cholelithiasis with possible porcelain gallbladder. 4. Mild Splenomegaly. - Medical Decision Making This is a 48 y.o. female that presents with nausea, vomiting, diarrhea, and abdominal pain for 2 days. Patient is stable and was examined by me. Vitals stable. Obtained labs and CT of abdomen and pelvis. The site obtained. Given normal saline and Toradol. Hypokalemia, given Klor-Con 40 mg by mouth once. CT of abdomen and pelvis. 1. Hepatic steatosis and hepatomegaly. 2. Multiple uterine masses most likely represents a uterine fibroids. Recommend further evaluation with pelvic ultrasound. 3. Cholelithiasis with possible porcelain gallbladder. 4. Mild Splenomegaly. Reviewed results with patient. Referral to gastroenterology and general surgery. Start tramadal and zofran. Discussed plan with patient and agreed to plan. No further questions noted by the patient. Discharged home in stable condition. Follow up with PCP in 2-3 days. Critical care attestation.: If time is entered above; I have spent that time in minutes in the direct care of this critically ill patient, excluding procedure time. ED Disposition Clinical Impression: Biliary colic, Nausea and vomiting in adult Cholelithiasis Qualifiers: Cholelithiasis location: gallbladder Cholecystitis presence: without cholecystitis Biliary obstruction: without biliary obstruction Qualified Code(s): K80.20 - Calculus of gallbladder without cholecystitis without obstruction Abdominal pain Qualifiers: Abdominal location: generalized Qualified Code(s): R10.84 - Generalized abdominal pain Disposition: TO HOME OR SELFCARE Is pt being admited?: No Does the pt Need Aspirin: No Condition: Stable Instructions: Cholelithiasis (ED), Abdominal Pain (ED) Additional Instructions: Follow up with your primary provider in 2-3 days. Return to the emergency room if you develop increasing abdominal pain, fever, nausea and/or vomiting, or changes in mental status. Prescriptions: Ondansetron [Zofran Odt] 4 mg PO Q8HR PRN #15 tab.rapdis PRN Reason: Nausea And Vomiting Referrals: MARKUS JAMES [Primary Care Provider] - 3-5 Days VELMA MILLER MD [Staff Physician] - 3-5 Days [facility] [Provider Group] - 3-5 Days Time of Disposition: 12:51
[2018-09-12 10:13] LABS: Hemoglobin 11.3 gm/dl (10.1-14.3); Mean Corpuscular HGB Conc 32 % (30-34); Mean Corpuscular Volume 83 fl (79-97); Platelet Count 281 K/mm3 (140-440); Red Blood Count 4.19 M/mm3 (3.65-5.03)
[2018-09-12 10:28] LABS: Albumin 3.6 g/dL (3.9-5); Calcium 8.8 mg/dL (8.4-10.2)
[2018-09-12] MEDS ORDERED: K-DUR PO ONE (10:44)
[2018-09-12] MEDS ORDERED: NACL 0.9% 1000 ML 1,000 ML IV ONE (10:44)
--- NOTE | 2018-09-12 12:09 | Cat Scan Report ---
FINAL REPORT EXAM: CT ABDOMEN PELVIS WO CON HISTORY: LUQ tenderness TECHNIQUE: CT of the abdomen and pelvis was performed without intravenous contrast. Reconstructions were included in the coronal and sagittal planes. PRIORS: None. FINDINGS: Lower thorax: The lung bases are clear. The visualized portions of the heart are normal. Liver: The liver is diffusely low in attenuation. The liver is enlarged measuring 19.8 centimeters. N o intrahepatic biliary duct dilation. No focal hepatic lesions. Gallbladder/ biliary system: Cholelithiasis is noted. There may be calcification of the gallbladder w all. No surrounding inflammation was seen. The common bile duct appears nondilated. Spleen: The spleen is mildly enlarged measuring 12.7 centimeters craniocaudal. No focal splenic lesio ns are seen. Pancreas: No pancreatic lesions are seen. No pancreatic duct dilation. Kidneys: No renal masses, cysts or hydronephrosis. No renal or ureteral calcifications. Adrenal glands: No adrenal masses. Vasculature: The abdominal aorta is nondilated. Lymph nodes: No enlarged lymph nodes are seen in the abdomen or pelvis. Bowel, mesentery, peritoneum: No bowel obstruction. No free fluid or free air. The appendix is normal . No colonic diverticulosis. No bowel wall thickening. Urinary bladder: No filling defects are seen. Pelvis: Multiple large uterine masses are seen likely representing uterine fibroids. The largest off of the left aspect of the uterine fundus measures 7.7 x 6.0 centimeters. Abdominal wall: There is a small fat containing umbilical hernia. Bones: Degenerative changes are seen at L5-S1. IMPRESSION: 1. Hepatic steatosis and hepatomegaly. 2. Multiple uterine masses most likely represent uterine fibroids. Recommend further evaluation with pelvic ultrasound. 3. Cholelithiasis with possible porcelain gallbladder. 4. Mild splenomegaly.
[2018-09-12 12:12] LABS: Band Neutrophils # (Manual) 0.4 K/mm3; Basophils % (Manual) 0 % (0.0-1.8); Eosinophils % (Manual) 0 % (0.0-4.3); Total Cells Counted 100
[2018-09-12 12:13] LABS: Hypochromasia Few
[2018-09-12 12:14] LABS: Platelet Estimate Consistent w Auto; Stomatocytes Few
[2018-09-12] MEDS ORDERED: TORADOL IV ONE (12:49)
[2018-09-12 13:00] LABS: Bacteria,Urine 1+ /HPF (Negative); Bilirubin,Urine NEG (Negative); Blood,Urine LG (Negative); Color,Urine Amber (Yellow); Mucus,Urine FEW /HPF; RBC,Urine > 182.0 /HPF (0.0-6.0); Urobilinogen,Urine < 2.0 mg/dL (<2.0)
== END 2018-09-12 13:37 | disposition home or self-care (01) ==
LOC: ED 09:13
DX: K80.20 Calculus of gallbladder without cholecystitis without obstruction (principal); K80.50 Calculus of bile duct without cholangitis or cholecystitis without obstruction; I10 Essential (primary) hypertension; M19.90 Unspecified osteoarthritis, unspecified site; J44.9 Chronic obstructive pulmonary disease, unspecified
CPT/HCPCS: 36415; 74176; 80053; 81001; 83690; 84703; 85007; 85025; 96361; 96374; 99284; J1885; J7030

== ENCOUNTER 2019-10-10 04:24 | Emergency (ER) | payer OTHER ==
[2019-10-10] MEDS ORDERED: ALUM-MAG HYDROXIDE-SIMETHICONE 200-200-20MG/5ML ORAL LIQD 30 ML PO ONE (04:50)
[2019-10-10] MEDS ORDERED: ASPIRIN 81 MG TAB CHEW PO ONE (04:50)
[2019-10-10 05:26] LABS: Hematocrit 32.9 % (30.3-42.9); Hemoglobin 10.6 gm/dl (10.1-14.3); Mean Corpuscular HGB Conc 32 % (30-34); Mean Corpuscular Volume 81 fl (79-97); Platelet Count 292 K/mm3 (140-440); Red Blood Count 4.07 M/mm3 (3.65-5.03)
[2019-10-10 05:31] LABS: Red Cell Distribution Width 22.5 % (13.2-15.2)
[2019-10-10 05:37] LABS: BUN/Creatinine Ratio 13; Blood Urea Nitrogen 15 mg/dL (7-17); Calcium 8.6 mg/dL (8.4-10.2); Hemolysis Index 0
--- NOTE | 2019-10-10 06:00 | XRay Report ---
CHEST 1 VIEW INDICATION: Chest Pain. COMPARISON: None. FINDINGS: Support devices: None. Heart: Normal. Lungs/Pleura: No acute pulmonary or pleural findings. IMPRESSION: 1. No acute findings. Signer Name: Gerard Mcclure MD Signed: 10/10/2019 5:56 AM Workstation Name: [id number]
[2019-10-10] MEDS ORDERED: KETOROLAC 60 MG/2 ML INJ IM ONE (06:19)
--- NOTE | 2019-10-10 06:34 | Emergency Department Report ---
ED Chest Pain HPI - General Chief Complaint: Chest Pain Stated Complaint: CHEST PAIN Time Seen by Provider: 10/10/19 06:01 Source: patient Mode of arrival: Ambulatory Limitations: Physical Limitation - History of Present Illness Initial Comments: 49-year-old -[place] female presents to the emergency department with a complaint of some lower mid sternal chest pain that started just prior to arrival today. It started off as a sharp pain but now is more of a soreness. It was associated with some nausea without vomiting, hot flashes. Patient also complains of a mixed dry and productive cough for the past week. No fever. The patient has not taken anything for symptoms prior to presentation. No recent travel or sick contacts at home. 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 Her primary care physician is Dr. Dick. She does not have a health tech. She denies any tobacco or illicit drug use. Severity scale (0 -10): 8 - Related Data Home Medications Medication Instructions Recorded Confirmed Last Taken Albuterol INH(or & Nicu Only) 2 puff IH QID PRN 12/25/17 12/29/17 2 Months Ago [Proair] ~10/29/17 Cetirizine HCl [Zyrtec] 10 mg PO DAILY 12/25/17 12/25/17 12/28/17 Enoxaparin [Lovenox] 100 mg SQ Q12HR 12/25/17 12/25/17 12/28/17 Levothyroxine Sodium 175 mcg PO DAILY 12/25/17 12/25/17 12/28/17 Triamter/Hctz 37.5-25 mg 1 tab PO DAILY 12/25/17 12/25/17 12/28/17 [Maxzide-25] Warfarin [Coumadin] 5 mg PO QDAY 12/25/17 12/25/17 12/23/17 20:00 Previous Rx's Medication Instructions Recorded Last Taken Type Ondansetron [Zofran Odt] 4 mg PO Q8HR PRN #15 tab.rapdis 09/12/18 Unknown Rx traMADoL [Ultram 50 MG tab] 50 mg PO Q6HR PRN #12 tablet 09/12/18 Unknown Rx Allergies Allergy/AdvReac Type Severity Reaction Status Date / Time acetaminophen [From Percocet] Allergy Rash Verified 11/11/16 20:21 clindamycin Allergy Rash Verified 11/11/16 20:21 lisinopril Allergy Unknown Verified 11/11/16 21:43 oxycodone HCl [From Percocet] Allergy Rash Verified 11/11/16 20:21 raspberry Allergy Rash Verified 11/11/16 17:52 Heart Score - HEART Score History: Slightly suspicious EKG: Normal Age: 45-65 Risk factors: 1-2 risk factors Troponin: < normal limit HEART Score: 2 - Critical Actions Critical Actions: 0-3 pts:0.9-1.7%risk of adverse cardiac event.Candidate for discharge ED Review of Systems ROS: Stated complaint: CHEST PAIN Other details as noted in HPI Comment: All other systems reviewed and negative Constitutional: denies: chills, fever Eyes: denies: eye pain, vision change ENT: denies: ear pain, throat pain Respiratory: denies: cough, shortness of breath Cardiovascular: chest pain. denies: palpitations Gastrointestinal: nausea. denies: abdominal pain, vomiting Genitourinary: denies: dysuria, discharge Musculoskeletal: denies: back pain, joint swelling Skin: denies: rash, lesions Neurological: denies: headache, weakness ED Past Medical Hx - Past Medical History Previous Medical History?: Yes Hx Hypertension: Yes (since 2003) Hx CVA: Yes (old right side weakness) Hx Arthritis: Yes ("everywhere") Hx Asthma: Yes ("Been a minute" since last treated) Hx COPD: Yes (2003) Additional medical history: hyperthyroid - Surgical History Past Surgical History?: Yes Additional Surgical History: lumbar discetomy - Social History Smoking Status: Never Smoker Substance Use Type: None - Medications Home Medications: Home Medications Medication Instructions Recorded Confirmed Last Taken Type Albuterol INH(or & Nicu Only) 2 puff IH QID PRN 12/25/17 12/29/17 2 Months Ago History [Proair] ~10/29/17 Cetirizine HCl [Zyrtec] 10 mg PO DAILY 12/25/17 12/25/17 12/28/17 History Enoxaparin [Lovenox] 100 mg SQ Q12HR 12/25/17 12/25/17 12/28/17 History Levothyroxine Sodium 175 mcg PO DAILY 12/25/17 12/25/1718 History Triamter/Hctz 37.5-25 mg 1 tab PO DAILY 12/25/17 12/25/17 12/28/17 History [Maxzide-25] Warfarin [Coumadin] 5 mg PO QDAY 12/25/17 12/25/17 12/23/17 20:00 History Ondansetron [Zofran Odt] 4 mg PO Q8HR PRN #15 tab.rapdis 09/12/18 Unknown Rx traMADoL [Ultram 50 MG tab] 50 mg PO Q6HR PRN #12 tablet 09/12/18 Unknown Rx ED Physical Exam - General Limitations: Physical Limitation - Other Other exam information: GENERAL: The patient is well-developed well-nourished. HENT: Normocephalic. Atraumatic. Patient has moist mucous membranes. EYES: Extraocular motions are intact. NECK: Supple. Trachea is midline. CHEST/LUNGS: Clear to auscultation. There is no respiratory distress noted. There is some reproducible tenderness to palpation to the lower midsternal chest wall. No crepitus or deformity. HEART/CARDIOVASCULAR: Regular. There is no tachycardia. There is no murmur. ABDOMEN: Abdomen is soft, nontender. Patient has normal bowel sounds. Obese habitus. SKIN: Skin is warm and dry. NEURO: The patient is awake, alert, and oriented. The patient is cooperative. The patient has no focal neurologic deficits. Normal speech. MUSCULOSKELETAL: There is no tenderness or deformity. There is no limitation range of motion. There is no evidence of acute injury. ED Course Vital Signs 10/10/19 10/10/19 10/10/19 04:34 06:29 06:34 Temperature 98.6 F Pulse Rate 74 64 Respiratory 18 16 18 Rate Blood Pressure 144/80 Blood Pressure 117/70 [Left] O2 Sat by Pulse 100 98 99 Oximetry 10/10/19 10/10/19 07:32 08:49 Temperature Pulse Rate 57 L 64 Respiratory 20 20 Rate Blood Pressure Blood Pressure 125/67 132/77 [Left] O2 Sat by Pulse 98 97 Oximetry ROSALEE score - Rosalee Score Age > 65: (0) No Aspirin use within the Past 7 Days: (0) No 3 or more CAD Risk Factors: (0) No 2 or more Angina events in past 24 hrs: (1) Yes Known CAD with more than 50% Stenosis: (0) No Elevated Cardiac Markers: (0) No ST Deviation Greater than 0.5mm: (0) No ROSALEE Score: 1 ED Medical Decision Making - Lab Data Result diagrams: 10/10/19 04:44 10/10/19 04:44 - EKG Data -: EKG Interpreted by Me EKG shows normal: sinus rhythm, axis, intervals, QRS complexes, ST-T waves Rate: normal - EKG Data When compared to previous EKG there are: previous EKG unavailable Interpretation: normal EKG - Radiology Data Radiology results: image reviewed interpreted by me: Chest x-ray does not show any acute process. There are no pleural effusions, obvious pneumonia and there is no pneumothorax. - Medical Decision Making This patient presents to the emergency department with some lower midsternal chest pain that started prior to presentation. At first it was a sharp pain but became more of a dull ache by the time she arrived to the emergency department. On examination there is some reproducible tenderness to palpation in this area of the chest wall without any crepitus or deformity. Heart and lung sounds are normal to auscultation. EKG was done that does not show any morphology consistent with ST elevation PA or any significant dysrhythmia. Chest x-ray does not show any pneumonia, pleural effusions, pneumothorax, focal consolidation, or any other acute process. Her labs have been unremarkable including negative troponins x2. Patient has a low heart and ROSALEE score. She is low on the Wells score criteria and negative for the pulmonary embolism rule out criteria. Her contact information has been sent to [facility] cardiology who should be contacting her in the next 1 to 2 days for close outpatient follow-up. The patient will return to the emergency department with any worsening of her symptoms or any acute distress. Her vital signs have been stable throughout her ED course. - Differential Diagnosis PA, costochondritis, GERD, pneumonia Critical Care Time: No Critical care attestation.: If time is entered above; I have spent that time in minutes in the direct care of this critically ill patient, excluding procedure time. ED Disposition Clinical Impression: Chest pain Qualifiers: Chest pain type: unspecified Qualified Code(s): R07.9 - Chest pain, unspecified Disposition: - TO HOME OR SELFCARE Is pt being admited?: No Condition: Stable Instructions: Chest Pain (ED) Additional Instructions: I have sent your contact information to [facility] heart cardiology and someone from their office should be contacting you for close outpatient follow-up. Please follow-up with your primary care physician in the next few days. Return to the emergency department with any worsening of your symptoms or any acute distress. Referrals: BRITT DICK JR, MD [Staff Physician] - 2-3 Days [facility] [Provider Group] - 2-3 Days Time of Disposition: 08:32
[2019-10-10 06:49] LABS: Basophils % (Manual) 0 % (0.0-1.8); Total Cells Counted 100
[2019-10-10 06:50] LABS: Anisocytosis 1+; Hypochromasia 1+; Platelet Estimate Consistent w Auto
[2019-10-10 08:49] VITALS: BP 132/77
== END 2019-10-10 08:51 | disposition home or self-care (01) ==
LOC: ED 04:24
DX: R07.89 Other chest pain (principal); I10 Essential (primary) hypertension; M19.90 Unspecified osteoarthritis, unspecified site; J44.9 Chronic obstructive pulmonary disease, unspecified; E03.9 Hypothyroidism, unspecified; Z98.890 Other specified postprocedural states; Z79.899 Other long term (current) drug therapy; Z88.5 Allergy status to narcotic agent; Z88.1 Allergy status to other antibiotic agents; Z88.8 Allergy status to other drugs, medicaments and biological substances
CPT/HCPCS: 36415; 71045; 80048; 84439; 84443; 84484; 84703; 85007; 85025; 93005; 93010; 96372; 99284; J1885

== ENCOUNTER 2021-11-25 10:27 | Outpatient (CLI) | payer BC ==
--- NOTE | 2021-11-27 08:49 | Mammography Report ---
DIGITAL SCREENING MAMMOGRAM WITH CAD, 11/25/2021 CLINICAL INFORMATION / INDICATION: Routine screening mammography. TECHNIQUE: Digital bilateral 2D mammography was obtained in the craniocaudal and mediolateral obliqu e projections. This examination was interpreted with the benefit of Computer-Aided Detection analysis . COMPARISON: Bilateral mammogram, 03/31/2014 FINDINGS: Breast Density: The breasts are almost entirely fatty. No dominant mass, suspicious calcifications, or architectural distortion in either breast. There has been no significant interval change. IMPRESSION: No mammographic evidence of malignancy. Follow up recommendation: Routine yearly BI-RADS Category 1: NEGATIVE A "normal" or negative report should not discourage follow up or biopsy of a clinically significant f inding. A written summary of these findings will be mailed to the patient. The patient will be entered into a mammography reporting system which will generate a reminder letter for the patient's next appointmen t at the appropriate interval. The [employer] recommends yearly mammograms starting at age 40 and continuing as l ankur as a woman is in good health. Breast MRI is recommended for women with an approximate 20-25% or greater lifetime risk of breast cancer, including women with a strong family history of breast or ova zeb cancer or who have been treated for Hodgkin's disease. Signer Name: Angelita Desouza MD Signed: 11/27/2021 8:44 AM Workstation Name: [id number]
== END 2021-11-25 10:28 | disposition home or self-care (01) ==
LOC: MAMMO 10:27
PROVIDERS: ATTEND Obstetrics & Gynecology
DX: Z12.31 Encounter for screening mammogram for malignant neoplasm of breast (principal)
CPT/HCPCS: 77067